=== PATIENT | female | born 1960 | race Caucasian/White ===

== ENCOUNTER → 2016-06-13 | Outpatient (CLI) | payer BC ==
[~2016-06-13] MED LIST: FISH OIL 1,001000 M2 PO; LO-DOSE ASPIRIN81 M2 PO; PRILOSEC20 MG PO
== END | disposition home or self-care (01) ==
LOC: AMB 15:30
PROC: 0JBF0ZZ Excision of Left Upper Arm Subcutaneous Tissue and Fascia, Open Approach (ICD-10-PCS; principal; 2016-06-13)
DX: D17.79 Benign lipomatous neoplasm of other sites (principal)
CPT/HCPCS: 88304